=== PATIENT | female | born 1975 | race Caucasian/White ===

== ENCOUNTER → 2023-02-09 15:52 | Outpatient (CLI) | payer OTHER, SELFPAY ==
--- NOTE | ~2023-02-09 | MM_ITS ---
EXAMINATION: MM screening rianna BI w jevon HISTORY: Screening mammogram TECHNIQUE: Craniocaudal and mediolateral oblique 3-D tomosynthesis images were obtained and synthetic 2-D images were generated. CAD analysis was submitted and interpreted. COMPARISON: No prior mammogram is available for comparison at this institution. BREAST PARENCHYMAL COMPOSITION:The breasts are almost entirely fatty FINDINGS: Small benign lymph node of the upper, outer left breast. There is a reniform mass at the in ferior right subareolar region on MLO view, with suspected small fatty hilum. No suspicious mass, abby cification, or architectural distortion are identified in either breast to suggest malignancy. There has been no suspicious interval change. IMPRESSION: Probable intramammary lymph node at the inferior right subareolar region on MLO view. Confirmation wi th spot compression and true lateral views, and possibly ultrasound, is advised. Recommend routine screening mammography in one year. BI-RADS Category 0: Incomplete: Needs additional imaging evaluation. Reviewed, dictated and finalized at [facility]. IMPRESSION: Probable intramammary lymph node at the inferior right subareolar region on MLO view. Confirmation with spot compression and true lateral views, and possibly ultrasound, is advised. Recommend routine screening mammography in one year. BI-RADS Category 0: Incomplete: Needs additional imaging evaluation.
== END ==
PROVIDERS: PCP Family Medicine; Visit Provider Physician Assistant
DX: Z12.31 Encounter for screening mammogram for malignant neoplasm of breast (principal); R92.8 Other abnormal and inconclusive findings on diagnostic imaging of breast
CPT/HCPCS: 77063; 77067

== ENCOUNTER → 2023-03-09 14:06 | Outpatient (CLI) | payer OTHER, SELFPAY ==
--- NOTE | ~2023-03-09 | MMUS_ITS ---
EXAMINATION: MM diagnostic rianna RT w jevon, US breast RT limited HISTORY: Possible right breast mass on screening mammogram TECHNIQUE: Additional 3-D tomosynthesis images of the right breast were performed and synthetic 2-D i mages were generated. CAD analysis was submitted and interpreted. High resolution limited right breas t ultrasound was performed. COMPARISON: 02/09/2013 FINDINGS: MAMMOGRAPHIC FINDINGS: No definite persistent right breast mass is identified with spot compression. No suspicious calcifica tion or architectural distortion. ULTRASOUND: There is a 3 mm x 2 mm oval, circumscribed, parallel, hypoechoic mass with no posterior features or i nternal vascularity at the 7:00 location of the right breast near the nipple. IMPRESSION: 1. Probably benign sonographically detected right breast mass near the nipple. 2. Recommend 6 month follow-up right breast ultrasound. BI-RADS category 3, probably benign findings. Reviewed, dictated and finalized at [facility]. IMPRESSION: 1. Probably benign sonographically detected right breast mass near the nipple. 2. Recommend 6 month follow-up right breast ultrasound. BI-RADS category 3, probably benign findings.
== END ==
PROVIDERS: PCP Family Medicine; Visit Provider Family Medicine
DX: R92.8 Other abnormal and inconclusive findings on diagnostic imaging of breast (principal)
CPT/HCPCS: 76642; 77061; 77065; G0279

== ENCOUNTER → 2023-09-17 15:09 | Outpatient (CLI) | payer OTHER, SELFPAY ==
--- NOTE | ~2023-09-17 | US_ITS ---
EXAMINATION: US breast RT limited HISTORY: Six-month follow-up for probably benign sonographically detected right breast mass TECHNIQUE: Limited right breast ultrasound is performed. FINDINGS: There is a stable 3 mm x 2 mm oval, circumscribed, parallel, hypoechoic mass with no quality control chemist ior features or internal vascularity at the 7:00 location near the nipple of the right breast. There has been no suspicious interval change. IMPRESSION: Stable, probably benign right breast mass. Six month follow-up targeted right breast ultrasound is re commended. BI-RADS category 3, probably benign findings. Reviewed, dictated and finalized at [facility]. [facility] TRIMMER IMPRESSION: Stable, probably benign right breast mass. Six month follow-up targeted right b reast ultrasound is recommended. BI-RADS category 3, probably benign findings.
== END ==
PROVIDERS: PCP Physician Assistant; Visit Provider Physician Assistant
DX: R92.8 Other abnormal and inconclusive findings on diagnostic imaging of breast (principal)
CPT/HCPCS: 76642

== ENCOUNTER 2024-03-16 07:46 | Outpatient (CLI) | payer OTHER, SELFPAY ==
--- NOTE | ~2024-03-16 | MM_ITS ---
EXAMINATION: MM screening rianna BI w jevon HISTORY: Screening mammogram TECHNIQUE: Craniocaudal and mediolateral oblique 3-D tomosynthesis images were obtained and synthetic 2-D images were generated. CAD analysis was submitted and interpreted. COMPARISON: 02/09/2023 bilateral screening mammogram 03/09/2023 diagnostic right mammogram and Limited right breast ultrasound 09/17/2023 Limited right breast ultrasound 03/16/2024 Limited right breast ultrasound BREAST PARENCHYMAL COMPOSITION: The breasts are almost entirely fatty. FINDINGS: There is no evidence of suspicious mass, calcification, or architectural distortion to sugg est malignancy in either breast. There has been no suspicious interval change. IMPRESSION: 1. No mammographic evidence of malignancy. 2. Recommend routine screening mammography in one year. BI-RADS Category 1: Negative Reviewed, dictated and finalized at [facility].
--- NOTE | ~2024-03-16 | US_ITS ---
US breast RT limited DATE: 03/16/2024 08:16 INDICATION: Six-month follow-up of previously reported stable probably benign 3 x 2 mm circumscribed hypoechoic breast mass at 7:00 near nipple TECHNIQUE: Limited breast ultrasound examination and color flow imaging was performed at 7:00 subareo lar area COMPARISON: 03/16/2024 bilateral screening mammogram 09/17/2023 Limited right breast ultrasound 03/09/2023 diagnostic right mammogram and Limited right breast ultrasound 02/09/2023 bilateral screening mammogram FINDINGS: Stable approximately 1.9 x 2.6 x 3 mm hypoechoic area is again noted at 7:00 subareolar are a, without internal vascularity or posterior shadowing, not significant change in appearance compared to 03/09/2023. IMPRESSION: BI-RADS [place] 2: Benign Recommendation: Routine annual mammographic screening Reviewed, dictated and finalized at [facility]. Reviewed, dictated and finalized at [facility].
== END 2024-03-16 07:47 ==
PROVIDERS: PCP Physician Assistant Medical; Visit Provider Physician Assistant
DX: Z12.31 Encounter for screening mammogram for malignant neoplasm of breast (principal); N63.10 Unspecified lump in the right breast, unspecified quadrant; R92.8 Other abnormal and inconclusive findings on diagnostic imaging of breast
CPT/HCPCS: 76642; 77063; 77067

== ENCOUNTER 2024-12-01 11:18 | Outpatient (CLI) | payer OTHER, SELFPAY ==
--- OUTSIDE RECORDS SUMMARY | 2024-12-01 11:25 | XMS_ITS | Patient Health Summary ---
Author Organization [facility] Address [address] [place] [address] Care Team Providers Care Agricultural Research Engineer Name Role Phone Neli Garg MD Primary Care Provider [phone] Note from [facility],non-owned Affiliates and Associated Physician Practices is amultiple site organization consisting of ambulatory clinics and hospital sitesin [place], [place], [place] and [place]. This disclosure is being madepursuant to the Care Everywhere program and may not contain all information available regarding this patient. Last updated 18.[facility] Allergies No known active allergies Medications * Be aware that medications may not be up to date on this document. Alwaysverify current medications with the patient. * multivitamin daily (THERAGRAN) tablet Take 1 Tab by mouth daily with food * VITAMIN D, CHOLECALCIFEROL, PO Take by mouth every 7 days * Cetirizine HCl (ZYRTEC ALLERGY PO) * fluticasone propionate (FLONASE) 50 MCG/ACT nasal spray(Started 10/19/2019) [place] 2 sprays into each nostril once daily * azithromycin (ZITHROMAX) 250 MG tablet(Started 07/01/2021) Take 2 tabs today, then 1 tab daily for next 4 days Active Problems Problem Noted Date Diagnosed Date Morbid obesity due to excess calories 07/20/2016 Social History Tobacco Use Types Packs/Day Years Used Date Smoking Tobacco: Never Smokeless Tobacco: Never Alcohol Use Standard Drinks/Week Comments No 0 (1 standard drink = 0.6 oz pur e alcohol) occasional Sex and Gender Information Value Date Recorded Sex Assigned at Not on file Gender Identity Not on file Sexual Orientation Not on file Last Filed Vital Signs Vital Sign Reading Time Taken Comments Blood Pressure 126/70 07/01/2021 11:50 AM CDT Pulse 65 07/01/2021 11:50 AM CDT Temperature 36.9 ??C (98.4 ??F) 07/01/2021 11:50 AM C DT Respiratory Rate 17 07/01/2021 11:50 AM CDT Oxygen Saturation 98% 07/01/2021 11:50 AM CDT Inhaled Oxygen Concentration - - Weight 70.3 kg (155 lb) 07/01/2021 11:50 AM CDT Height 157.5 cm (5' 2 ) 07/01/2021 11:50 AM CDT Body Mass Index 28.35 07/01/2021 11:50 AM CDT Procedures * STREP A SCREEN - POINT OF CARE (AMB) STL(Performed 07/01/2021) Performed for Acute sinusitis, recurrence not specified, unspecified location * STREP A SCREEN - POINT OF CARE (AMB) STL(Performed 11/04/2018) Performed for Acute pharyngitis, unspecified etiology * STREP A SCREEN - POINT OF CARE (AMB) STL(Performed 05/27/2018) Performed for Strep throat * STREP A SCREEN - POINT OF CARE (AMB) STL(Performed 01/08/2018) Performed for Acute pharyngitis, unspecified etiology * LAB RESULTS ORDER(Performed 04/28/2017) * LAB RESULTS ORDER(Performed 10/01/2016) * GLUCOSE - POINT OF CARE(Performed 07/21/2016) * FL FLUORO UPPER GI TRACT + KUB(Performed 07/21/2016) Performed for H/O gastric bypass * GLUCOSE - POINT OF CARE(Performed 07/21/2016) * HEMOGLOBIN A1C(Performed 07/21/2016) * VITAMIN D 25-HYDROXY(Performed 07/21/2016) * CBC W AUTO DIFFERENTIAL(Performed 07/21/2016) * BASIC METABOLIC PANEL (CALCIUM TOTAL)(Performed 07/21/2016) * GLUCOSE - POINT OF CARE(Performed 07/21/2016) * GLUCOSE - POINT OF CARE(Performed 07/20/2016) * GLUCOSE - POINT OF CARE(Performed 07/20/2016) * GLUCOSE - POINT OF CARE(Performed 07/20/2016) * LAPAROSCOPIC GASTRIC BYPASS(Performed 07/20/2016) * HCG URINE QUALITATIVE - POINT OF CARE(Performed 07/20/2016) Performed for Preop examination * GLUCOSE - POINT OF CARE(Performed 07/20/2016) * POTASSIUM BLOOD(Performed 07/20/2016) Performed for Preop examination * VITAMIN B12(Performed 07/07/2016) Performed for Preop examination * VITAMIN B1(Performed 07/07/2016) Performed for Preop examination * COMPREHENSIVE METABOLIC PANEL(Performed 07/07/2016) Performed for Preop examination * CBC W AUTO DIFFERENTIAL(Performed 07/07/2016) Performed for Preop examination * EKG 12-LEAD(Performed 07/07/2016) Performed for Preop examination * LAB RESULTS ORDER(Performed 2016) * ESOPHAGOGASTRODUODENOSCOPY (EGD) DIAGNOSTIC(Performed 05/22/2015) Performed for Morbid obesity (HCC) * VAS BILATERAL VENOUS DUPLEX LE(Performed 05/22/2015) Performed for Morbid obesity (HCC), Leg swelling, Sleep disturbance * HELICOBACTER PYLORI UREASE (STL)(Performed 05/22/2015) Performed for Morbid obesity [278.01] * PATHOLOGY TISSUE EXAM (STL)(Performed 05/22/2015) Performed for Morbid obesity [278.01] * GLUCOSE - POINT OF CARE(Performed 05/22/2015) * HCG URINE QUALITATIVE - POINT OF CARE(Performed 05/22/2015) Results * STREP A SCREEN - POINT OF CARE (AMB) STL (07/01/2021 11:55 AM CDT) Only the most recent of4 resultswithin the time period is included. Strep A Rapid POCT Negative Negative [facility] Strep A Internal Control Present [facility] Lot # [id number] [facility] Expiration Date 02/28/22 [facility] Throat ENTIRE THROAT (SURFACE REGION OF NECK) / Unknown 07/01/2021 11:55 AM CDT Fabricio FOX LAB - POINT OF CARE ORDERABLES [facility] [address] [phone] * LAB RESULTS ORDER (04/28/2017) Only the most recent of3 resultswithin the time period is included. Bakari Harper MD LAB - THERAPEUTIC DR UG MONITORING ORDERABLES * (ABNORMAL) GLUCOSE - POINT OF CARE (07/21/2016 12:40 PM CDT) Only the most recent of8 resultswithin the time period is included. Glucose WB/POC 227(H) 70 - 106 mg/dL 07/21/2016 1:19 PM CDT [facility] Blood BLOOD SPECIMEN / Unknown 07/21/2016 12:40 PM CDT 07/21/2016 1:19 PM CDT Bakari Harper MD LAB - POINT OF CARE ORDERABLES Performing Organization Address City/State/[facility] Co de Phone Number [facility] [address] [place] [address] * FL FLUORO UPPER GI TRACT + KUB (07/21/2016 9:43 AM CDT) Anatomical Region Laterality Modality Abdomen Radiographic Mitali ging 07/21/2016 2:52 PM CDT Impressions 07/21/2016 2:52 PM CDT No evidence of ??leak or obstruction. Narrative 07/21/2016 2:52 PM CDT Limited Upper GI after Gastric Bypass Indication: Morbid obesity, gastric surgery, gastric leak. Findings: Fluoroscopy of the gastric remnant was performed following ingestion of oral contrast media. There is no evidence of leak. There is prompt emptying into the small bowel. Total Fluoro Time = 0.4 minutes, no spot fluoroscopic imaging was obtained as cine' fluoroscopy was utilized with cine' fluoroscopy images saved in video format. Procedure Note Walter Smith MD - 07/21/2016 Limited Upper GI after Gastric Bypass Indication: Morbid obesity, gastric surgery, gastric leak. Findings: Fluoroscopy of the gastric remnant was performed following ingestion of oral contrast media. There is no evidence of leak. There is prompt emptying into the small bowel. Total Fluoro Time = 0.4 minutes, no spot fluoroscopic imaging was obtained as cine' fluoroscopy was utilized with cine' fluoroscopy images saved in video format. IMPRESSION No evidence of leak or obstruction. Bakari Harper MD FLUOROSCOPY ORDERABL ES * (ABNORMAL) HEMOGLOBIN A1C (07/21/2016 5:29 AM CDT) [facility] Hemoglobin A1c 8.2(H) 4.2 - 6.3 % 07/21/2016 6:00 AM CDT [facility] Estimated Average Glucose 189 mg/dL 07/21/2016 6:00 AM CDT [facility] Whole Blood BLOOD SPECIMEN WITH EDTA / Unknown 07/21/2016 5:29 AM CDT 07/21/2016 5:37 AM CDT Radha Foss APRN-[employer] LAB - CHEMISTR Y ORDERABLES Performing Organization Address [facility] Co de Phone Number [facility] [address] [place] [address] * (ABNORMAL) VITAMIN D 25-HYDROXY (07/21/2016 5:28 AM CDT) [facility] Vitamin D, 25 Hydroxy 29.94(L) 30 - 100 ng/mL 07/21/2016 10:48 AM CDT [facility] Blood BLOOD SPECIMEN / Unknown 07/21/2016 5:28 AM CDT 07/21/2016 5:37 AM CDT Narrative [facility] - 07/21/2016 10:48 AM CDT Vitamin D Status: ?Deficiency ? <20 ? ng/mL ?Insufficiency ?? 20-30 ??ng/mL ?Sufficiency ? 30-100 ng/mL ?Toxicity ? >100 ?ng/mL Bakari Harper MD LAB - CHEMISTRY ORDEduar CABELLO Performing Organization Address [facility] Co de Phone Number [facility] [address] [place] [address] * (ABNORMAL) CBC W AUTO DIFFERENTIAL (07/21/2016 5:28 AM CDT) Only the most recent of2 resultswithin the time period is included. WBC 8.6 4.4 - 10.7 x10E9/L 07/21/2016 5:40 AM CDT [facility] WBC Corrected x10E9/L 07/21/2016 5:40 AM CDT [facility] RBC 4.64 3.80 - 5.20 x10E12/L 07/21/2016 5:40 AM CDT [facility] Hemoglobin 11.1(L) 12.0 - 15.6 gm/dL 07/21/2016 5:40 AM CDT [facility] Hematocrit 33.7(L) 35.9 - 45.5 % 07/21/2016 5:40 AM CDT [facility] MCV 72.6(L) 80.7 - 98.3 fl 07/21/2016 5:40 AM CDT [facility] MCH 23.9(L) 26.7 - 34.0 pg 07/21/2016 5:40 AM CDT [facility] MCHC 32.9 30.8 - 35.9 gm/dL 07/21/2016 5:40 AM CDT [facility] Platelet Count 280 153 - 416 x10E9/L 07/21/2016 5:40 AM CDT [facility] RDW-CV 14.9 12.1 - 14.9 % 07/21/2016 5:40 AM CDT [facility] MPV 9.5 9.4 - 12.9 fl 07/21/2016 5:40 AM CDT [facility] Neutrophils % 83.7(H) 44.0 - 73.0 % 07/21/2016 5:40 AM CDT [facility] Lymphocytes % 9.2(L) 20.0 - 43.0 % 07/21/2016 5:40 AM CDT [facility] Monocytes % 6.4 5.0 - 13.0 % 07/21/2016 5:40 AM CDT [facility] Eosinophils % 0.0 0.0 - 6.0 % 07/21/2016 5:40 AM CDT [facility] Basophils % 0.1 0.0 - 2.0 % 07/21/2016 5:40 AM CDT [facility] Immature Granulocytes 0.6 0 - 1 % 07/21/2016 5:40 AM CDT [facility] Neutrophil Absolute 7.19(H) 2.01 - 7.14 x10E9/L 07/21/2016 5:40 AM CDT [facility] Lymphocytes Absolute 0.79(L) 1.07 - 3.94 x10E9/L 07/21/2016 5:40 AM CDT [facility] Monocytes Absolute 0.55 0.26 - 1.07 x10E9/L 07/21/2016 5:40 AM CDT [facility] Eosinophils Absolute 0.00 0 - 0.47 x10E9/L 07/21/2016 5:40 AM CDT [facility] Basophils Absolute 0.01 0 - 0.08 x10E9/L 07/21/2016 5:40 AM CDT [facility] Immature Granulocytes Absolute 0.05 0.00 - 0.06 x10E9/L 07/21/2016 5:40 AM CDT [facility] nRBC Auto 0 /100 WBC 07/21/2016 5:40 AM CDT [facility] Blood BLOOD SPECIMEN / Unknown 07/21/2016 5:28 AM CDT 07/21/2016 5:37 AM CDT Bakari Harper MD LAB - HEMATOLOGY ORD ERABLES [facility] [address] [place] [address] * (ABNORMAL) BASIC METABOLIC PANEL (CALCIUM TOTAL) (07/21/2016 5:28 AM CDT) Glucose 208(H) 74 - 106 mg/dL 07/21/2016 5:55 AM CDT [facility] Sodium 136 136 - 145 mmol/L 07/21/2016 5:55 AM CDT [facility] Potassium 4.2 3.5 - 5.1 mmol/L 07/21/2016 5:55 AM CDT [facility] Chloride 103 98 - 107 mmol/L 07/21/2016 5:55 AM CDT [facility] CO2 26 22 - 31 mmol/L 07/21/2016 5:55 AM CDT [facility] Calcium 8.2(L) 8.5 - 10.1 mg/dL 07/21/2016 5:55 AM CDT [facility] Anion Gap 7 5 - 20 mmol/L 07/21/2016 5:55 AM CDT [facility] BUN 9 7 - 21 mg/dL 07/21/2016 5:55 AM CDT [facility] Creatinine 0.87 0.50 - 1.30 mg/dL 07/21/2016 5:55 AM CDT [facility] eGFR by MDRD >60 >60 mL/min/1.7 3m2 07/21/2016 5:55 AM CDT [facility] eGFR by MDRD >60 >60 mL/min/1.7 3m2 07/21/2016 5:55 AM CDT [facility] Blood BLOOD SPECIMEN / Unknown 07/21/2016 5:28 AM CDT 07/21/2016 5:37 AM CDT Bakari Harper MD LAB - CHEMISTRY JANNETTE CABELLO Performing Organization Address City/[facility]/ZIP Co de Phone Number [facility] [address] [place] [address] * HCG URINE QUALITATIVE - POINT OF CARE (IP) (07/20/2016 10:24 AM CDT) Only the most recent of2 resultswithin the time period is included. HCG Qual Urine Negative Negative [facility] QC Verified Yes Yes [facility] POC T TESTING Urine specimen (specimen) URINE / Unknown 07/20/2016 10:24 AM CDT Julissa Fregoso DO LAB - POINT OF CARE ORDERABLES Performing Organization Address City/[facility]/ZIP Co de Phone Number [facility] [address] [phone] * POTASSIUM BLOOD (07/20/2016 10:06 AM CDT) Potassium 3.9 3.5 - 5.1 mmol/L 07/20/2016 10:27 AM CDT [facility] Blood BLOOD SPECIMEN / Unknown 07/20/2016 10:06 AM CDT 07/20/2016 10:13 AM CDT Bakari Harper MD LAB - CHEMISTRY JANNETTE CABELLO Performing Organization Address City/[facility]/ZIP Co de Phone Number [facility] [address] [place] [address] * VITAMIN B1 (07/07/2016 9:34 AM CDT) Pathologist [facility] Vitamin B1 Whole Blood 119.6 66.5 - 200.0 nmol/L 07/09/2016 6:08 PM CDT [facility] ([facility]) Blood specimen (specimen) BLOOD SPECIMEN / Unknown 07/07/2016 9:34 AM CDT 07/07/2016 10:22 AM CDT Narrative [facility] ([facility]) - 07/09/2016 6:08 PM CDT Performed at: ??01 - [facility] ??[id number] Ticketing Agent: Jason Fountain MD, Phone: ??[phone] Bakari Harper MD LAB - CHEMISTRY JANNETTE CABELLO Performing Organization Address City/[facility]/ZIP Co de Phone Number [facility] ([facility]) [address] [place] [address] * (ABNORMAL) COMPREHENSIVE METABOLIC PANEL (07/07/2016 9:34 AM CDT) Pathologist [facility] Glucose 260(H) 74 - 106 mg/dL 07/07/2016 10:50 AM CDT [facility] Sodium 135(L) 136 - 145 mmol/L 07/07/2016 10:50 AM CDT [facility] Potassium 4.0 3.5 - 5.1 mmol/L 07/07/2016 10:50 AM CDT [facility] Chloride 100 98 - 107 mmol/L 07/07/2016 10:50 AM CDT [facility] CO2 30 22 - 31 mmol/L 07/07/2016 10:50 AM CDT [facility] Calcium 8.4(L) 8.5 - 10.1 mg/dL 07/07/2016 10:50 AM CDT [facility] Anion Gap 5 5 - 20 mmol/L 07/07/2016 10:50 AM CDT [facility] BUN 12 7 - 21 mg/dL 07/07/2016 10:50 AM CDT [facility] Creatinine 0.72 0.50 - 1.30 mg/dL 07/07/2016 10:50 AM CDT [facility] Alkaline Phosphatase 135(H) 38 - 126 U/L 07/07/2016 10:50 AM CDT [facility] ALT 18 13 - 61 U/L 07/07/2016 10:50 AM CDT [facility] Comment:See reference range update AST 10 5 - 40 U/L 07/07/2016 10:50 AM CDT [facility] Protein Total 7.1 6.4 - 8.2 gm/dL 07/07/2016 10:50 AM CDT [facility] Albumin 3.1(L) 3.4 - 5.0 gm/dL 07/07/2016 10:50 AM CDT [facility] Bilirubin Total 0.3 0.2 - 1.0 mg/dL 07/07/2016 10:50 AM CDT [facility] eGFR by MDRD >60 >60 mL/min/1.7 2 07/07/2016 10:50 AM CDT [facility] eGFR by MDRD >60 >60 mL/min/1.7 3m2 07/07/2016 10:50 AM CDT [facility] Blood BLOOD SPECIMEN / Unknown 07/07/2016 9:34 AM CDT 07/07/2016 10:22 AM CDT Bakari Harper MD LAB - CHEMISTRY JANNETTE CABELLO Performing Organization Address City/State/[facility] Co de Phone Number [facility] [address] [place] [address] * VITAMIN B12 (07/07/2016 9:34 AM CDT) Vitamin B12 509 211 - 911 pg/mL 07/07/2016 11:14 AM CDT [facility] Blood BLOOD SPECIMEN / Unknown 07/07/2016 9:34 AM CDT 07/07/2016 10:22 AM CDT Bakari Harper MD LAB - CHEMISTRY JANNETTE CABELLO Performing Organization Address City/[facility] de Phone Number [facility] [address] [place] [address] * EKG 12-LEAD (07/07/2016 9:10 AM CDT) Ventricular Rate 81 BPM [facility] Atrial Rate 81 BPM [facility] P-R Interval 180 ms [facility] QRS Duration ms 78 ms [facility] Q-T Interval ms 380 ms [facility] QTC Calculation (Bezet) 441 ms [facility] Calculated P [place] 43 degrees [facility] Calculated R [place] 10 degrees [facility] Calculated T [place] 37 degrees [facility] Interpretation EKG Normal sinus rhythm Normal ECG No previous ECGs available Confirmed by SHAN KILLIAN MD ([id number]) on 07/07/2016 1:18:14 PM [facility] 07/07/2016 9:10 AM CDT 07/07/2016 1:18 PM CDT Bakari Harper MD ECG ORDERABLES Performing Organization Address [facility] Co de Phone Number [facility] * VAS VENOUS DUPLEX LE BILATERAL (05/22/2015 12:07 PM CDT) Anatomical Region Laterality Modality Ultrasound 05/22/2015 11:1 1 AM CDT Narrative Procedure Note Chong Burton MD - 05/23/[address] [address] Lower Extremity Venous Ultrasound Report Pat.Name: ELY MORALES Pat.ID: [id number] St.Date: 05/22/2015 Exam Time: 11:11:00 AM Study Type:LE Venous Age: 5 1975,40Y Sex: FEMALE Sonogrphr: Julieta Crawford RVT Pat. Stat.:Outpatient Reason for Study:Swelling -Leg, bilateral Procedures:Lower Extremity Venous - Bilateral Visit ID: [id number] SUMMARY: There is no evidence of an acute deep or superficial venous thrombosis in either the right or left lower extremity. There is a small Jeff's cyst present in the left popliteal fossa. FINDINGS: Procedure: Venous duplex imaging of both lower extremities was performed using color flow and spectral Doppler analysis. Study Quality: This study is of adequate technical quality. Bilateral: All vessels seen appear patent and compressible. There was spontaneous and phasic flow seen in all the major veins of both lower extremities. Appropriate augmentation with distal compression. Comments: Incidental finding of a non vascular soft tissue mass that is anechoic in the left popliteal fossa measuring 1.97 by 1.44cm. Signed 05/23/2015 12:28 AM Chong Burton MD Bakari Harper MD VASCULAR LAB ORDERAB LES * HELICOBACTER PYLORI UREASE (STL) (05/22/2015 8:25 AM CDT) Pathologist [facility] Helicobacter pylori Urease Initial Negative Negative 05/23/2015 8:16 PM CDT [facility] Helicobacter pylori Urease Final Negative Negative 05/23/2015 8:16 PM CDT [facility] Microbiology GASTRIC ANTRAL BIOPSY SPECIMEN / Unknown 05/22/2015 8:25 AM CDT 05/22/2015 12:54 PM CDT Bakari Harper MD LAB - MICROBIOLOGY O RDERABLES [facility] [address] [place] [address] * GROSS + MICRO EXAM (STL) (05/22/2015 8:24 AM CDT) Case Report Surgical Pathology Report ? Case: [id number] ? Authorizing Provider: ??Bakari Harper MD ? Collected: ? 05/22/2015 08:24 AM ? Ordering Location: ? [facility] ?Received: ?05/22/2015 10:17 AM ? Pathologist: ? Renaldo Patel MD ? Specimens: ?? A) - Gastric Biopsy, gastric antrum bx-cold ? B) - EG Junction Biopsy , eg junction bx-cold ? 05/23/2015 3:19 PM CDT [facility] Final Diagnosis Stomach, antrum, biopsy: -- ??Gastritis, chronic, mild GE junction, biopsy: -- ??Chronic inflammation, mild to moderate, nonspecific JW/eamon 05/23/2015 3:19 PM CDT [facility] Gross Description Received in formalin are 2 containers, each labeled Ely Morales. Container 1 is labeled gastric antrum biopsy. ??The container holds 2 pink-lim tissue fragments measuring 0.6 x 0.3 x 0.1 cm and 0.7 x 0.2 x 0.1 cm. ??Specimen is entirely submitted in cassette labeled A1. Container 2 is labeled EG junction biopsy. ??The container holds a single pink-lim tissue fragment measuring 0.4 x 0.2 x 0.2 cm. ??Specimen is entirely submitted in cassette labeled B1. DYT/maribeth 05/23/2015 3:19 PM CDT [facility] Microscopic Description Section of the gastric antrum biopsy shows fragments of gastric mucosa. Mild chronic inflammation is seen. No malignancy is identified. No Helicobacter organisms are present on H&E or H pylori immunostain. Section labeled GE junction shows squamous epithelium and gastric-type of mucosa, squamous epithelium displaying normal maturation. Dysplasia or malignancy is not seen. Mild to moderate chronic inflammation is seen within the fragments of gastric mucosa. Intestinal metaplasia is not identified. Alcian blue/PAS stain is negative. MODESTA/eamon 05/23/2015 3:19 PM CDT [facility] Pathology/Cytology GASTRIC BIOPSY SPECIMEN / Unknown 05/22/2015 8:24 AM CDT 05/22/2015 10:17 AM CDT Miscellaneous samples (specimen) BIOPSY SPECIMEN / Unknown 05/22/2015 8:24 AM CDT 05/22/2015 10:17 AM CDT Bakari Harper MD LAB - PATHOLOGY/CYTO LOGY ORDERABLES Performing Organization Address City/State/[facility] Co de Phone Number [facility] [address] [place] [address] Care Teams Agricultural Research Engineer Relationship Specialty Start Date End Date Neli Garg MD [address] [place] [address] PCP - General Family Medicine 04/30/15
--- OUTSIDE RECORDS SUMMARY | 2024-12-01 11:25 | XMS_ITS | Referral Summary ---
Author Organization [facility] Address [address] [facility] [place] [address] Care Team Providers Care Doctor Of Nurse Anesthesia Practice Name Role Phone Neli Garg MD Primary Care Provider [phone] Source Comments [facility],non-select specialty hospital Affiliates and Associated Physician Practices is amultiple site organization consisting of ambulatory clinics and hospital sitesin [place], [place], [place] and [place]. This disclosure is being madepursuant to the Care Everywhere program and may not contain all information available regarding this patient. Last updated 18.[facility] Allergies No known active allergies Medications * Be aware that medications may not be up to date on this document. Alwaysverify current medications with the patient. Medication Sig Dispensed Refills Start Date End Date Status multivitamin daily (THERAGRAN) tablet Take 1 Tab by mouth daily with food Active VITAMIN D, CHOLECALCIFEROL, PO Take by mouth every 7 days Active Cetirizine HCl (ZYRTEC ALLERGY PO) Active fluticasone propionate (FLONASE) 50 MCG/ACT nasal spray [place] 2 sprays into each nostril once daily 1 g 10/19/2019 Active azithromycin (ZITHROMAX) 250 MG tabletIndications:Acut e sinusitis, recurrence not specified, unspecified location Take 2 tabs today, then 1 tab daily for next 4 days 6 tablet 07/01/2021 Active Active Problems Problem Noted Date Diagnosed Date [...] Mass Index 28.35 07/01/2021 11:50 AM CDT Functional Status Functional Status Response Date of Assess ment Is person deaf or have serious hearing difficult y? No 07/20/2016 Is person blind or have serious difficulty seein g? No 07/20/2016 Does person have serious dif ficulty walking/climbing stairs? No 07/20/2016 Does person have difficulty dressing/bathing? No 07/20/2016 Does person have difficulty doing errands alone? No 07/20/2016 Cognitive Status Response Date of Assessm ent Does person have difficulty concentrating/remembering/making decisions? No 07/20/2016 Plan of Treatment Not on file Procedures Procedure Name Priority Date/Time Associated Diagnosis Comments BASIC METABOLIC PANEL (CALCIUM TOTAL) AM Draw 07/21/2016 5:28 AM CDT from Last 3 Months or Most Recently Relevant to Health Maintenance Results * (ABNORMAL) BASIC METABOLIC PANEL (CALCIUM TOTAL) (07/21/2016 5:28 AM CDT) [facility] Signature Glucose 208(H) 74 - 106 mg/dL 07/21/2016 5:55 AM CDT [facility] Sodium 136 136 - 145 mmol/L 07/21/2016 5:55 AM CDT [facility] Potassium 4.2 3.5 - 5.1 mmol/L 07/21/2016 5:55 AM CDT [facility] Chloride 103 98 - 107 mmol/L 07/21/2016 5:55 AM CDT [facility] CO2 26 22 - 31 mmol/L [...] Bakari Harper MD [facility] Organization Address City/State/ZIP Co de Phone Number [facility] [address] [place] [address] from Last 3 Months or Most Recently Relevant to Health Maintenance Advance Directives * Full Code (Latest Code Status on File) Date Activated Date Inactivated Comments 07/20/2016 8:24 PM 07/21/2016 5:23 PM Care Teams Doctor Of Nurse Anesthesia Practice Relationship Specialty Start Date End Date Neli Garg MD [address] [place] [address] PCP - General Family Medicine 04/30/15
--- OUTSIDE RECORDS SUMMARY | 2024-12-01 11:25 | XMS_ITS | Clinical Summary ---
Author Organization [facility] Address [address] [place] [address] Care Team Providers Care Industrial Production Manager Name Role Phone Neli Garg MD Primary Care Provider [phone] Source Comments [facility],non-owned Affiliates and Associated Physician Practices is amultiple site organization consisting of ambulatory clinics and hospital sitesin [place], [place], [place] and [place]. This disclosure is being madepursuant to the Care Everywhere program and may not contain all information available regarding this patient. Last updated 18.[facility] Allergies No known active allergies Medications * [...] fluticasone propionate (FLONASE) 50 MCG/ACT nasal spray [place] 2 sprays into each nostril once daily 1 g 10/19/2019 Active azithromycin (ZITHROMAX) 250 MG tabletIndications:Acut e sinusitis, recurrence not specified, unspecified location Take 2 tabs today, then 1 tab daily for next 4 days 6 tablet 07/01/2021 Active Active Problems Problem Noted Date Diagnosed Date Morbid obesity due to excess calories 07/20/2016 Family History Medical History Relation Name Comments CAD (Coronary Artery Disease) Father COPD - Chronic Obstructive Pulmonary Disease Father Diabetes - Type 2 Father Hyperlipidemia Father Hypertension Father Hypertension Mother Diabetes Other 1 CAD (Coronary Artery Disease) Other 2 Stroke Other 3 Relation Name Status Comments Father Mother Other 1 Other 2 Other 3 Social History Tobacco Use Types Packs/Day Years [...] Mass Index 28.35 07/01/2021 11:50 AM CDT Plan of Treatment Health Maintenance Due Date Last Done Comments COLOGUARD (AGES 45-75) - COLON CA SCREENING [address] COLONOGRAPHY - COLON CA SCREENING 1974 FIT - COLON CA SCREENING 1974 FLEX SIG - COLON CA SCREENING 1974 LIPID TESTING 1974 MAMMOGRAM 1974 PAP SMEAR 1974 HIV SCREENING 1989 HEPATITIS C SCREENING 03/20/1992 DTAP/TDAP/TD VACCINES (1 - Tdap) 1993 HEPATITIS B VACCINE (1 of 3 - 19+ 3-dose series) 1993 SCREENING FOR DIABETES 07/01/2021 6, 07/21/2016, 07/21/2016, Additional history exists PNEUMOCOCCAL VACCINE 50+ (1 of 1 - PCV) 2024 ZOSTER VACCINE (1 of 2) 2024 COVID-19 VACCINE (1 - season) 2024 INFLUENZA VACCINE (#1) 2024 10/02/2020, 2019 DEPRESSION SCREENING 11/01/2024 COLONOSCOPY - COLON CA SCREENING 08/22/2025 08/22/2015 Colorectal Cancer Screening 08/22/2025 HIB VACCINE Aged Out No longer eligi ble based on patient's age to complete this topic HPV VACCINE Aged Out No longer eligi ble based on patient's age to complete this topic MENINGOCOCCAL (Group B) VACCINE Aged Out No longer eligible based on patient's age to complete this topic MENINGOCOCCAL VACCINE Aged Out No oscar cyrus eligible based on patient's age to complete this topic PNEUMOCOCCAL VACCINE Aged Out No long er eligible based on patient's age to complete this topic Procedures Procedure Name Priority Date/Time Associated Diagnosis [...] - 5.1 mmol/L 07/21/2016 5:55 AM CDT [facility] Chloride 103 98 - 107 mmol/L 07/21/2016 5:55 AM CDT [facility] CO2 26 22 - 31 mmol/L 07/21/2016 5:55 AM CDT [facility] Calcium 8.2(L) 8.5 - 10.1 mg/dL 07/21/2016 5:55 AM CDT [facility] Anion Gap 7 5 - 20 mmol/L 07/21/2016 5:55 AM CDT [facility] BUN 9 7 - 21 mg/dL 07/21/2016 5:55 AM CDT [facility] Creatinine 0.87 0.50 - 1.30 mg/dL 07/21/2016 5:55 AM CDT [facility] eGFR by MDRD >60 >60 mL/min/1.7 3m2 07/21/2016 5:55 AM CDT [facility] eGFR by MDRD >60 >60 mL/min/1.7 3m2 07/21/2016 5:55 AM CDT [facility] Blood BLOOD SPECIMEN / Unknown 07/21/2016 5:28 AM CDT 07/21/2016 5:37 AM CDT Bakari Harper MD LAB - CHEMISTRY JANNETTE CABELLO [facility] [address] [place] [address] from Last 3 Months or Most Recently Relevant to Health Maintenance Advance Directives * Full Code (Latest Code Status on File) Date Activated Date Inactivated Comments 07/20/2016 8:24 PM 07/21/2016 5:23 PM Care Teams Industrial Production Manager Relationship Specialty Start Date End Date Neli Garg MD [address] [place] [address] PCP - General Family Medicine 04/30/15
[2024-12-01 12:15] LABS: Strep Group A RT-PCR NOT DETECTED (Negative)
[2024-12-01 12:26] LABS: Influenza A QL RT-PCR Negative (Negative); Influenza B QL RT-PCR Negative (Negative); RSV RNA, RT-PCR Positive (Negative); SARS-CoV-2 RNA PCR Negative (Negative)
== END 2024-12-01 11:19 | disposition home or self-care (01) ==
PROVIDERS: PCP Family Medicine; Visit Provider Family Medicine
DX: J06.9 Acute upper respiratory infection, unspecified (principal); J02.9 Acute pharyngitis, unspecified; Z20.822 Contact with and (suspected) exposure to COVID-19
CPT/HCPCS: 87637; 87651

== ENCOUNTER 2025-06-05 14:17 | Outpatient (CLI) | payer OTHER, SELFPAY ==
--- NOTE | ~2025-06-05 | MM_ITS ---
EXAMINATION: screening [facility] BI w jevon INDICATION: Asymptomatic, referred for screening mammogram COMPARISON: 03/16/2024 and 02/09/2023 TECHNIQUE: Digital Breast Tomosynthesis CC, MLO views of Both breasts were obtained with computer-ai ded detection to assist in interpretation of the study. FINDINGS: There are scattered areas of fibroglandular density. There is an asymmetry seen on the cc view in the far lateral left breast at posterior depth. Elsewhere, there are no mammographic features of malignancy. IMPRESSION: 1. Left breast Asymmetry. 2. No evidence of malignancy in the Right breast. RECOMMENDATION: Left breast Diagnostic mammogram with true lateral, appropriate spot compression views and an ultraso und if needed. BI-RADS Category 0: Incomplete: Needs additional imaging evaluation. Reviewed, dictated and finalized at location B. IMPRESSION: 1. Left breast Asymmetry. 2. No evidence of malignancy in the Right breast. RECOMMENDATION: Left breast Diagnostic mammogram with true lateral, appropriate spot compressio n views and an ultrasound if needed. BI-RADS Category 0: Incomplete: Needs additional imaging evaluation.
== END 2025-06-05 14:18 | disposition home or self-care (01) ==
LOC: CHSIMG 14:19
PROVIDERS: PCP Family Medicine; Visit Provider Student in an Organized Health Care Education/Training Program
DX: Z12.31 Encounter for screening mammogram for malignant neoplasm of breast (principal); N64.89 Other specified disorders of breast
CPT/HCPCS: 77063; 77067

== ENCOUNTER 2025-06-14 09:23 | Outpatient (CLI) | payer OTHER, SELFPAY ==
--- NOTE | ~2025-06-14 | MMUS_ITS ---
EXAMINATION: MM diagnostic rianna LT w jevon, US breast LT limited HISTORY: Follow-up left breast mass TECHNIQUE: Additional 3-D tomosynthesis images of the left breast were performed and synthetic 2-D im ages were generated. CAD analysis was submitted and interpreted. High resolution Limited left breast ultrasound was performed. COMPARISON: Comparison to multiple prior studies sequentially, with oldest reviewed study dated 02/09. BREAST PARENCHYMAL COMPOSITION: Not Dense: The breasts are almost entirely fatty. FINDINGS: MAMMOGRAPHIC FINDINGS: There are small low-density masses in the upper outer quadrant of the left breast, likely benign. The re are no suspicious calcifications or architectural distortion. ULTRASOUND: Limited left breast ultrasound: There are a cluster of 3 small intramammary lymph nodes at 1:00, 13 c m from the nipple, largest measuring 8 mm. No suspicious sonographic abnormalities to suggest maligna ncy. IMPRESSION: 1. No evidence for malignancy in the left breast. Benign findings. 2. Routine yearly screening mammogram and regular clinical breast examination are recommended. BI-RADS Category 1: Negative Reviewed, dictated and finalized at location A. IMPRESSION: 1. No evidence for malignancy in the left breast. Benign findings. 2. Routine yearly screening mammogram and regular clinical breast examination a re recommended. BI-RADS Category 1: Negative
--- OUTSIDE RECORDS SUMMARY | 2025-06-14 09:39 | XMS_ITS | Continuity of Care Document ---
Author Organization [facility] Address [address] [place] [address] Phone Care Team Providers Care Lokie Engineer Name Role Phone Geremias Keys MD Unavailable Unavailable Allergies, Adverse Reactions, Alerts Substance Reaction Status Criticality No Known Allergies Active No Inform ation Medications Medication Instructions Dosage Effective Dates (start - stop) Status Comments montelukast 10 mg tablet take 1 tablet by oral route every day in the evening 10 MG - Active Lantus 100 unit/mL subcutaneous solution inject 60 milliliter by subcutaneous route 2 times every day as per insulin protocol 60 milliliter - Active Aleve 220 mg capsule take 1 capsule by oral route every day as needed 1 capsule - Active tramadol 50 mg tablet take 1 tablet by oral route every 6 hours as needed 50 MG - Active Tylenol 325 mg tablet take 2 tablet by oral route every 4 hours as needed 650 MG - Active omeprazole 20 mg tablet,delayed release take 1 tablet by oral route every day 1 tablet - Active lisinopril 2.5 mg tablet take 1 tablet by oral route every day 2.5 MG - Active citalopram 20 mg tablet take 1 tablet by oral route every day 20 MG - Active Advance Directives Directive Yes / No Effective Date File Name No Information Encounters Encounter Description Practice Location Reason(s) For Visit Diagnoses Date Provider Providers Copied on Encounter [facility], [address], [place], [place], [id number] , [place] tel:[phone] [facility] No Information 3-201 [address] Ludmila Archuleta. [address], [address], [place], [address], [place]. tel: [phone] [facility], [address], [place], [place], [id number] , [place] tel: [phone] [facility] Rectal bleedingRectal painGastroesophage al reflux disease without esophagitisHiatal hernia 5 Ludmila Almazanshore. [address], [address], [place], [address], [place]. tel: [phone] Referring Provider: Neli Garg, [address] [place], [address]. tel:[phone] Family History Family Member Type Diagnosis Age At Onset Problem (finding) Family history of Irritable bowel disease Payers Payer name Insurance type Covered alliance party ID Authorthuy howe(s) [facility] [id number] Social History Type Description Quantity Date Captured Comments Alcohol Use Details Unknown Caffeine Use Details Unknown Tobacco Use Status No Information Smoking Status No Information Sex Female Chief Complaint And Reason For Visit No Information Reason For Referral Reason For Referral No Information History Of Present Illness Encounter Date Complaint History Of Prese nt Illness No Information Functional Status Date Functional Assessmen t No Information Medications Administered Medication Instructions Dosage Effective Dates (start - stop) Status Comments No Drug Therapy Prescribed Instructions Date Instruction Additional Infor mation No Information Assessments Type Assessment Date No Information Patient Care Teams Name Effective Dates (start - stop) Status Members No Information
--- OUTSIDE RECORDS SUMMARY | 2025-06-14 09:39 | XMS_ITS | Clinical Summary ---
Author Organization [facility] Address [address] [place] [address] Care Team Providers Care Fish Peddler Name Role Phone Neli Garg MD Primary Care Provider [phone] Source Comments [facility],non-owned Affiliates and Associated Physician Practices is amultiple site organization consisting of ambulatory clinics and hospital sitesin [place], [place], [place] and [place]. This disclosure is being madepursuant to the Care Everywhere program and may not contain all information available regarding this patient. Last updated 18.[facility] Allergies No known active allergies Medications * Be aware that medications may not be up to date on this document. Alwaysverify current medications with the patient. multivitamin daily (THERAGRAN) tablet Take 1 Tab by mouth daily with food Active VITAMIN D, CHOLECALCIFEROL, PO Take by mouth every 7 days Active Cetirizine HCl (ZYRTEC ALLERGY PO) Active fluticasone propionate (FLONASE) 50 MCG/ACT nasal spray [place] 2 sprays into each nostril once daily 1 g 10/19/2019 Active azithromycin (ZITHROMAX) 250 MG tabletIndication s:Acute sinusitis, recurrence not specified, unspecified location Take [...] = 0.6 oz pur e alcohol) occasional Comments No Sex and Gender Information Value Date Recorded Sex Assigned at Not on file Legal Sex Female 10:16 AM CDT Gender Identity Not on file Sexual Orientation Not on file Last Filed Vital Signs Vital Sign Reading Time Taken Comments Blood Pressure 126/70 07/01/2021 11:50 AM CDT Pulse 65 07/01/2021 11:50 AM CDT Temperature 36.9 C (98.4 F) 07/01/2021 11:50 AM CDT Respiratory Rate 17 07/01/2021 11:50 AM CDT Oxygen Saturation 98% 07/01/2021 11:50 AM CDT Inhaled Oxygen Concentration - - Weight 70.3 kg (155 lb) 07/01/2021 11:50 AM CDT Height 157.5 cm (5' 2) 07/01/2021 11:50 AM CDT Body Mass Index 28.35 07/01/2021 11:50 AM CDT Plan of Treatment Health Maintenance Due Date Last Done Comments COLOGUARD (AGES 45-75) - COLON CA SCREENING 1974 CT COLONOGRAPHY - COLON CA SCREENING 1974 FIT - COLON CA SCREENING 1974 FLEX SIG - COLON CA SCREENING 1974 LIPID TESTING 1974 MAMMOGRAM 1974 HIV SCREENING 1989 HEPATITIS C SCREENING 03/20/1992 DTAP/TDAP/TD VACCINES (1 - Tdap) 1993 HEPATITIS B VACCINE (1 of 3 - 19+ 3-dose series) 1993 SCREENING FOR DIABETES 07/01/2021 6, 07/21/2016, 07/21/2016, Additional history exists PNEUMOCOCCAL VACCINE 50+ (1 of 1 - PCV) 2024 ZOSTER VACCINE (1 of 2) 2024 COVID-19 VACCINE (1 - season) 2024 DEPRESSION SCREENING 11/01/2024 INFLUENZA VACCINE (#1) 2025 10/02/2020, 2019 COLON MONITORING 08/22/2025 08/22/2015 COLONOSCOPY - COLON CA SCREENING 08/22/2025 08/22/2015 Colorectal Cancer Screening 08/22/2025 HIB VACCINE Aged Out No longer eligi ble based on patient's age to complete this topic HPV VACCINE Aged Out No longer eligi ble based on patient's age to complete this topic MENINGOCOCCAL (Group B) VACCINE SHARED DECISION-MAKING Aged Out No longer eligible based on patient's age to complete this topic MENINGOCOCCAL GROUPS A/C/Y/W VACCINE Aged Out No longer eligible based [...] - 145 mmol/L 07/21/2016 5:55 AM CDT [facility] Potassium 4.2 3.5 - 5.1 mmol/L 07/21/2016 5:55 AM CDT [facility] Chloride 103 98 - 107 mmol/L 07/21/2016 5:55 AM CDT [facility] CO2 26 22 - 31 mmol/L 07/21/2016 5:55 AM CDT [facility] Calcium 8.2(L) 8.5 - 10.1 mg/dL [...] 5:28 AM CDT 07/21/2016 5:37 AM CDT us Bakari Harper MD LAB - CHEMISTRY ORDERABLES F inal Result [facility] [address] [place] [address] from Last 3 Months or Most Recently Relevant to Health Maintenance Insurance [facility] Address: [facility] [id number] [place] [address] Advance Directives * Full Code (Latest Code Status on File) Date Activated Date Inactivated Comments 07/20/2016 8:24 PM 07/21/2016 5:23 PM Care Teams Fish Peddler Relationship Specialty Start Date End Date Neli Garg MD [address] [place] [address] PCP - General Family Medicine 04/30/15
== END 2025-06-14 09:24 | disposition home or self-care (01) ==
LOC: CHSIMG 09:25
PROVIDERS: PCP Family Medicine; Visit Provider Student in an Organized Health Care Education/Training Program
DX: R92.8 Other abnormal and inconclusive findings on diagnostic imaging of breast (principal)
CPT/HCPCS: 76642; 77061; 77065; G0279

== ENCOUNTER 2025-10-08 13:33 | Emergency (ER) | payer OTHER, SELFPAY ==
[2025-10-08 13:42] VITALS: BP 113/71; PULSE 74; RESP 20; TEMP 36.3; O2SAT 98
--- NOTE | 2025-10-08 14:01 | ED.URI ---
HPI - URI/Sore Throat General Chief Complaint: Upper Respiratory Infection Stated Complaint: Chest Congestion/Ear Pain Time Seen by Provider: 10/08/25 13:45 Source: patient and RN notes reviewed Mode of arrival: ambulatory Limitations: no limitations History of Present Illness HPI Narrative: 50-year-old female presents to the [facility] complaining upper respiratory symptoms for for little over 1 week. Patient says symptoms are not getting better, she reports they are getting worse. Patient reports ear pain, mucopurulent nasal drainage, cough, congestion, chest congestion. Patient reports the cough is worse at night when she is laying flat. Patient worse the cough is mucopurulent and dry at times. Patient denies any other upper respiratory symptoms, fevers, eczema chills, nausea vomiting, chest pain, difficulty breathing or any other symptoms. Patient taking [id number] cold and flu medication without relief. Patient denies any significant past medical history. Related Data Allergies Allergy/AdvReac Type Severity Reaction Status Date / Time No Known Allergies Allergy Mild Verified 10/08/25 13:48 Review of Systems Review of Systems: CONSTITUTIONAL: Denies fever, chills, body aches, or sweats. EYES: Denies visual changes, redness, or discharge. ENT: Positive for nasal drainage, congestion, and otalgia. Negative for sore throat or rhinorrhea. CARDIOVASCULAR: Denies chest pain, palpitations, or edema. RESPIRATORY: Positive for cough and chest congestion. Negative for dyspnea. GASTROINTESTINAL: Denies abdominal pain, nausea, vomiting, or diarrhea. GENITOURINARY: Denies dysuria or hematuria. SKIN: Denies rash or itching. MUSCULOSKELETAL: Denies back pain, joint pain, or myalgia. NEUROLOGIC: Denies headache, numbness, or weakness. PSYCHIATRIC: Denies anxiety or depression. All other systems reviewed are negative, except as documented in HPI. [facility] Past Medical History Medical History Allergic rhinitis Essential (primary) hypertension Mild single current episode of major depressive disorder Vitamin B 12 deficiency Vitamin D deficiency Surgical History Surgical History S/P gastric bypass Family History Family History Father Hypertension Family history of diabetes mellitus in first degree relative Family history of coronary artery disease Family history of congestive heart failure Social History Social History Smoking status: Never smoker Second hand tobacco smoke exposure: No Alcohol intake: current Alcohol use details: seldom Substance use: never Substance use type: does not use Lack of Transportation: No Lack of Food: Never True Current Housing: I Have Housing Concerned About Future Housing: No Difficulty Paying Gas/Electric Bills: YES Difficulty Paying for Meds: No Currently Unemployed: No Education: High School Diploma/GED Difficulty w/ Childcare or Family Care: No Living arrangements: with family Comments At the time of my signature, I reviewed and agree with the nursing past medical, surgical, social, and family history. There is no relevant family history pertinent to the patient complaint. Exam Narrative: GENERAL: This is a well-nourished, well-developed adult, in no apparent distress. They are non ill-appearing, nontoxic appearing. HEAD: normocephalic, atraumatic. EYES: Sclera clear/white. Vision is grossly intact. Conjunctiva normal bilaterally. Extraocular movements intact. EARS: External ears normal, auditory canals clear and without drainage, TMs without erythema or perforation. Hearing grossly intact. NOSE: External nose normal with no obvious nasal discharge, nasal turbinates erythematous, no rhinorrhea. THROAT: Mucous membranes moist, posterior pharynx erythematous without exudate. Uvula is midline. Postnasal drip present. NECK: Neck supple, non-tender without lymphadenopathy, masses or thyromegaly. CARDIOVASCULAR: Regular rate and rhythm without murmurs, gallops, or rubs. RESPIRATORY: Clear to auscultation. Breath sounds equal bilaterally. No wheezes, rales, or rhonchi. SKIN: warm, Dry, intact with no suspicious lesions or rash, good texture and turgor. NEURO: awake, alert, and oriented to person, place and time. There were no obvious focal neurologic abnormalities. EXTREMITIES: No joint tenderness, effusion, or edema noted. BACK: Nontender without deformity. Course Course Level of Care: Express Care Visit Vital Signs Vital signs: Vital Signs Temperature 97.3 F L 10/08/25 13:42 Pulse Rate 74 10/08/25 13:42 Respiratory Rate 20 10/08/25 13:42 Blood Pressure 113/71 10/08/25 13:42 Pulse Oximetry 98 10/08/25 13:42 Oxygen Delivery Room Air 10/08/25 13:42 Temperature 97.3 F L 10/08/25 13:42 Pulse Rate 74 10/08/25 13:42 Respiratory Rate 20 10/08/25 13:42 Blood Pressure 113/71 10/08/25 13:42 Pulse Oximetry 98 10/08/25 13:42 Oxygen Delivery Room Air 10/08/25 13:42 MDM MDM Narrative Medical decision making narrative: Given pains delete the symptoms are worsening symptoms likely has the bacterial sinusitis. Will treat with Augmentin. Given severity of cough will give her prednisone as well. Discussed physical exam findings. Advised supportive measures and signs/symptoms to go to the ER. Pt is appropriate for outpt treatment and f/u. Differential Diagnosis Differential Diagnosis: Differential diagnostic considerations for upper respiratory infection include upper respiratory infection, croup, otitis media, sinusitis, viral infection, bronchitis, influenza, pharyngitis, strep, uvulitis. Discharge Plan Discharge Clinical Impression: Sinobronchitis Patient Disposition: Home Condition: Stable Instructions: Antibiotic Form, Sinusitis (ED) Additional Instructions: Take the antibiotics as directed and complete the course even if you start to feel better. You may use a Neti pot saline rinse 3 times a day with lukewarm distilled water Benzonatate tablets as needed for cough. Take prednisone as directed. Continue to take Tylenol or Motrin as needed for pain or fevers follow instructions on the bottle Use a humidifier or vaporizer at night. Drink plenty of water. 8-10 glasses per day. Use flonase 2 times per day for 5 days then as needed Take mucinex 2 times per day and be sure to take with 8oz of water. Follow up with Primary provider in 3-5 days Please go to the ER if he develops any difficulty breathing, chest pains, vomiting, uncontrolled fevers, weakness, worsening symptoms, or any other serious concerns Patient Language: Argentine Prescriptions: New benzonatate 200 mg capsule 200 mg PO TID PRN (Reason: cough) Qty: 20 0RF prednisone 20 mg tablet 40 mg PO DAILY 5 Days Qty: 10 0RF amoxicillin-pot clavulanate 875-125 mg tablet 1 tablet PO Q12H 7 Days Qty: 14 0RF No Action fluticasone furoate 27.5 mcg/actuation spray,suspension 1 spray intranasal DAILY Qty: 5.9 5RF Rx Instructions: into each nostril albuterol sulfate 90 mcg/actuation HFA aerosol inhaler 1 inh inhalation Q4H PRN (Reason: shortness of breath or wheezing) Qty: 8.5 0RF estradiol [Estrace] 0.01 % (0.1 mg/gram) cream 1 g vaginal 3XW Qty: 42.5 4RF ergocalciferol (vitamin D2) 1,250 mcg (50,000 unit) capsule 50,000 unit PO WEEKLY Qty: 14 2RF Wegovy 0.25 mg/0.5 mL pen injector 0.25 mg subcut WEEKLY Qty: 2 0RF Rx Instructions: administer weeks 1 through 4 of therapy citalopram 10 mg tablet 10 mg PO DAILY Qty: 90 1RF Follow-up/Referrals: Forest,MD Neli [Primary Care Provider, Family Practice] Time of Disposition: 13:56
== END 2025-10-08 14:00 | disposition home or self-care (01) ==
PROVIDERS: PCP Family Medicine
DX: J32.9 Chronic sinusitis, unspecified (principal); J40 Bronchitis, not specified as acute or chronic; I10 Essential (primary) hypertension; F32.0 Major depressive disorder, single episode, mild; Z98.84 Bariatric surgery status
CPT/HCPCS: 99213; G0463